=== PATIENT | male | born 1955 ===

== ENCOUNTER 2017-11-27 03:16 | Emergency (ER) | payer MEDICARE ==
[~2017-11-27] VITALS: Ht 182.8 cm; Wt 122.5 kg
[2017-11-27 03:41] LABS: HEMATOCRIT 43.3 % (42.0-52.0); HEMOGLOBIN 12.6 g/dl (14.0-18.0); MEAN CELL VOLUME 123.7 fl (80.0-94.0); MEAN CORPUSCULAR HGB CONC 29.1 g/dl (33.0-37.0); MEAN PLATELET VOLUME 9.7 fl (9.6-12.3); NUCLEATED RED BLOOD CELL 0.1 10*3/uL (0.0-0.0); NUCLEATED RED BLOOD CELL 0.6 % (0.0-0.0); PLATELET COUNT AUTOMATED 132 10*3/uL (130-400); RED CELL DISTRI WIDTH 14.5 % (0-14.5); WHITE BLOOD COUNT 14.2 10*3/uL (4.8-10.8)
[2017-11-27] MEDS ORDERED: CYMBALTA20 M1 PO (03:49)
[2017-11-27] MEDS ORDERED: XANAX0.5 MG PO (03:49)
[2017-11-27] MEDS ORDERED: OXYCONTIN30 M1 PO (03:49)
[2017-11-27] MEDS ORDERED: ALDACTONE25 M1 PO (03:50)
[2017-11-27] MEDS ORDERED: LISINOPRIL2.5 MG PO (03:50)
[2017-11-27] MEDS ORDERED: COUMADIN2.5 MG PO (03:50)
[2017-11-27] MEDS ORDERED: POTASSIUM CHLO10 MEQ PO (03:50)
[2017-11-27] MEDS ORDERED: IMITREX50 MG PO (03:51)
[2017-11-27] MEDS ORDERED: PERCOCET 10-321 EACH PO (03:51)
[2017-11-27] MEDS ORDERED: REQUIP1 M1 PO (03:52)
[2017-11-27 03:53] LABS: ACT PARTIAL THROMBO TIME 40.9 SECONDS (20.8-31.5); INTERNATIONAL NORM RATIO 1.3 (2.0-3.5)
[2017-11-27 03:58] LABS: ALBUMIN 2.6 gm/dl (3.1-4.5); CREATININE 3.24 mg/dL (0.70-1.30); POTASSIUM 3.7 mmol/L (3.5-5.1); TOTAL PROTEIN 6.2 gm/dL (6.4-8.2)
[2017-11-27 03:59] LABS: PLATELET SUFFICIENCY LOW (NORMAL); TOTAL CELLS COUNTED 100 #CELLS
[2017-11-27 04:03] LABS: TROPONIN I 0.058 ng/ml (<0.045)
[2017-11-27 04:06] LABS: ABG BASE EXCESS -21.2 mmol/L (-2.0-2.0); ABG HCO3 14.2 mmol/l (22-26); ABG O2 SATURATION 95.9 % (95-97)
[2017-11-27 04:07] LABS: ARTERIAL BLOOD GAS PCO2 84.4 mmHg (35-45); ARTERIAL BLOOD GAS PH 6.854 (7.35-7.45)
== END 2017-11-27 07:00 | disposition expired ==
LOC: ED 03:25 → EDBD 03:27 → ED 03:27
PROVIDERS: Emergency Medicine Emergency Medical Services
DX: I46.9 Cardiac arrest, cause unspecified (principal)